=== PATIENT | female | born 1960 | race Caucasian/White ===

== ENCOUNTER 2019-02-10 05:14 | Day surgery (SDC) ==
--- NOTE | 2019-02-05 13:52 | EKG Report ---
Test Performed on : 02/05/2019 1:39:48 PM Test Reason : PAT Blood Pressure : / mmHG Vent. Rate : 081 BPM Atrial Rate : 081 BPM P-R Int : 162 ms QRS Dur : 068 ms QT Int : 366 ms P-R-T Axes : 068 043 031 degrees QTc Int : 425 ms Normal sinus rhythm. Possible Left atrial enlargement Septal infarct , age undetermined Abnormal ECG When compared with ECG of 16-JUL-2018 09:13, No significant change was found Confirmed by Malik HENDRICKS, Renato ([id number]) on 02/06/2019 8:42:03 AM
--- NOTE | 2019-02-05 14:17 | Diag Imaging Result Doc PS360 ---
CHEST-2 VIEWS - 02/05/2019 INDICATION: PAT COMPARISON: 12/25/2013 FINDINGS: The lungs are normally expanded and clear. Heart size and mediastinal contours are normal. No pneumothorax or pleural effusion. IMPRESSION: Negative exam. Electronically signed by Stephen Espinoza 02/05/2019 2:15 PM
[2019-02-10] MEDS ORDERED: KEFZOL 1 GM/D5W 1 GM/50 ML IVPB ONE (05:36)
[2019-02-10] MEDS ORDERED: LR 1,000 ML ONE (05:36)
[2019-02-10] MEDS ORDERED: DIPRIVAN 1% ONE ×2 (06:35→06:56)
[2019-02-10] MEDS ORDERED: NUPERCAINAL ONE (06:38)
[2019-02-10] MEDS ORDERED: SENSORCAINE 0.5%-EPI 1:200,000 ONE (06:39)
[2019-02-10] MEDS ORDERED: ZOFRAN ONE (07:11)
[2019-02-10] MEDS ORDERED: DECADRON ONE (07:11)
[2019-02-10] MEDS ORDERED: TORADOL ONE (07:31)
[2019-02-10] MEDS ORDERED: D5 1/2 NS 1,000 ML ONE (08:20)
--- NOTE | 2019-02-10 08:24 | OPERATIVE NOTE ---
PROCEDURE DATE: 02/10/2019 PREOPERATIVE DIAGNOSIS NOTE: Rectal pain and bleeding. POSTOPERATIVE DIAGNOSIS: Dorsal fissure. PROCEDURES: 1. Fissurectomy. 2. Sphincterotomy. DESCRIPTION OF PROCEDURE: The patient was brought to the operating room. After satisfactory induction of IV and endotracheal anesthesia, she was placed in the prone jackknife position. Her buttocks were taped and spread. Exam under anesthesia revealed the deep dorsal fissure and some small hemorrhoids. A standard fissurectomy was subsequently performed with infiltration of 10 mL of Marcaine with epinephrine. The ulcer was elliptically excised with hemostasis being achieved by electrocautery. Wdfwqm-[id number] anastomosis was subsequently performed with a running locking 2-0 Vicryl suture. This required bossing at the proximal end with another Vicryl to stop the oozing. On the left side, a sphincterotomy was performed at the 9:00 position with division of a portion of the external sphincteric muscles. Again, hemostasis was obtained by electrocautery and a [id number]-[id number] anastomosis was performed with running locking 2-0 Vicryl suture. On completion, there was no further evidence of bleeding or expanding hematoma. An Avitene butt plug was placed with Americaine ointment. Sterile dressing was applied. She was turned back onto her back, awakened, and extubated in the operating room, and transferred to recovery. ESTIMATED BLOOD LOSS: About 20 mL. cc: Dez Mathews MD
[2019-02-10] MEDS: DILAUDID ONE ×2 (08:48→08:52)
[2019-02-10] MEDS ORDERED: DILAUDID PCA VIAL ONE (08:53)
[2019-02-10] MEDS ORDERED: LR 1,000 ML IV SCH (09:15)
[2019-02-10] MEDS ORDERED: BENADRYL IV PRN (09:15)
[2019-02-10] MEDS ORDERED: NARCAN IV PRN (09:15)
[2019-02-10] MEDS ORDERED: ATARAX PO PRN (09:15)
[2019-02-10] MEDS ORDERED: NARCAN 0.4 MG in LR 1,000 ML IV PRN (09:15)
[2019-02-10] MEDS ORDERED: ZOFRAN IV PRN (09:15)
[2019-02-10] MEDS ORDERED: DILAUDID PCA VIAL IV PRN (09:15)
[2019-02-10] MEDS ORDERED: FLOMAX PO SCH (10:45)
[2019-02-10] MEDS: ULTRAM PO SCH ×3 (12:20→21:41)
[2019-02-10] MEDS ORDERED: ULTRAM PO PRN (13:00)
[2019-02-10] MEDS ORDERED: LIORESAL PO PRN (13:00)
[2019-02-10] MEDS ORDERED: PEPCID PO PRN (13:00)
[2019-02-10] MEDS: D5 1/2 NS 1,000 ML IV SCH ×2 (13:13→22:25)
[2019-02-10] MEDS ORDERED: XANAX PO SCH (21:00)
[2019-02-10] MEDS ORDERED: DESYREL PO SCH (21:00)
[2019-02-10] MEDS ORDERED: FLEXERIL PO SCH (21:00)
[2019-02-10] MEDS: LYRICA PO SCH (21:41)
[2019-02-10] MEDS: PERIDEX MT SCH (21:42)
[2019-02-11] MEDS: D5 1/2 NS 1,000 ML IV SCH (03:05)
[2019-02-11] MEDS ORDERED: TUMS EXTRA STRENGTH PO ONE (04:29)
[2019-02-11] MEDS: ULTRAM PO SCH (04:38)
[2019-02-11 08:26] VITALS: BP 149/73
[2019-02-11] MEDS ORDERED: ISOPTIN SR PO SCH (09:00)
[2019-02-11] MEDS ORDERED: ESTRACE PO SCH (09:00)
[2019-02-11] MEDS: PERIDEX MT SCH (09:02)
[2019-02-11] MEDS: LYRICA PO SCH (09:08)
== END 2019-02-11 10:00 | disposition home or self-care (01) ==
LOC: 4N 05:14 → OR 05:14
PROVIDERS: ATTEND Surgery
CPT/HCPCS: 71020; 71046; 88304; 93005; 93010; 94761; 94799; A9270; J0690; J1100; J1170; J1885; J2405; J7120